=== PATIENT | female | born 1995 | race African-American/Black ===

== ENCOUNTER 2016-07-04 08:15 | Emergency (ER) | payer SELFPAY ==
[2016-07-04 08:46] VITALS: BP 132/63
[2016-07-04] MEDS ORDERED: Ketorolac INJ* 60 MG/2 ML VIAL IM ONE (10:05)
--- NOTE | 2016-07-04 10:05 | UC ---
Back Pain HPI - HPI Summary HPI Summary: fell down stairs yesterday morning-c/o coccyx pain, patient states she will be completing a chemical this afternoon - History of Current Complaint Chief Complaint: UCLowerExtremity Stated Complaint: FELL TAILBONE PAIN Time Seen by Provider: 07/04/16 09:57 Hx Obtained From: Patient Hx Last Menstrual Period: pt states in process of terminating ?: Yes Onset/Duration: Sudden Onset, Lasting Days - 1, Still Present Timing: Constant Severity Initially: Moderate Severity Currently: Moderate Pain Intensity: 7 Pain Scale Used: 0-10 Numeric Back Pain: Is Discrete @ - coccyx Character: Aching Aggravating: Movement, Bending, Walking Alleviating: Rest, Position Associated Signs And Symptoms: Negative: Abdominal Pain, Flank Pain, Bladder Incontinence, Bowel Incontinence, Weight Loss, Pain with Weight Bearing - Allergies/Home Medications Allergies/Adverse Reactions: Allergies Allergy/AdvReac Type Severity Reaction Status Date / Time No Known Allergies Allergy Verified 02/14/16 11:55 PMH/Surg Hx/FS Hx/Imm Hx Previously Healthy: Yes Endocrine History Of: Denies: Diabetes, Thyroid Disease Cardiovascular History Of: Denies: Cardiac Disorders, Hypertension, Pacemaker/ICD, Congestive Heart Failure Respiratory History Of: Denies: COPD, Asthma GI/ History Of: Denies: Gastroesophageal Reflux, Ulcer, Renal Disease Neurological History Of: Denies: CVA, Dementia, Seizures Other History Of: Negative For: Anticoagulant Therapy - Surgical History Surgical History: Yes Surgery Procedure, Year, and Place: csection 4 years ago - Family History Known Family History: Positive: None Family History: no cardio vascular issues in family lineage - Social History Occupation: Unemployed Lives: With Family Alcohol Use: Occasionally Substance Use Type: None Smoking Status (MU): Light Every Day Tobacco Smoker Type: Cigarettes Amount Used/How Often: 2-3 cig./day Have You Smoked in the Last Year: Yes - Immunization History Most Recent Influenza Vaccination: NEVER HAD Most Recent Tetanus Shot: UTD Hx Tetanus, Diphtheria Vaccination: Yes Vaccination Up to Date: Yes Review of Systems Constitutional: Negative Skin: Negative Eyes: Negative ENT: Negative Respiratory: Negative Cardiovascular: Negative Gastrointestinal: Negative Genitourinary: Negative Motor: Negative Neurovascular: Negative Musculoskeletal: Myalgia - coccyx pain Neurological: Negative Psychological: Negative All Other Systems Reviewed And Are Negative: Yes Physical Exam Triage Information Reviewed: Yes Appearance: Well-Appearing, Well-Nourished, Pain Distress Vital Signs: Initial Vital Signs Temp 97.4 F 07/04/16 08:41 Pulse 71 07/04/16 08:41 Resp 18 07/04/16 08:41 BP 132/63 07/04/16 08:41 Pulse Ox 99 07/04/16 08:41 Vital Signs Reviewed: Yes Eye Exam: Normal Eyes: Positive: Conjunctiva Clear ENT Exam: Normal ENT: Positive: Normal ENT inspection, Hearing grossly normal, TMs normal. Negative: Nasal congestion, Nasal drainage, Tonsillar swelling, Tonsillar exudate, Trismus, Muffled/hoarse voice Neck exam: Normal Neck: Positive: Supple, Nontender, No Lymphadenopathy Respiratory Exam: Normal Respiratory: Positive: Chest non-tender, Lungs clear, Normal breath sounds, No respiratory distress, No accessory muscle use Cardiovascular Exam: Normal Cardiovascular: Positive: RRR, No Murmur, Pulses Normal, Brisk Capillary Refill Abdominal Exam: Normal Abdomen Description: Positive: Nontender, No Organomegaly, Soft Bowel Sounds: Positive: Present Musculoskeletal Exam: Normal Musculoskeletal: Positive: Strength Intact, ROM Intact, No Edema, Other: - buttock pain Neurological Exam: Normal Neurological: Positive: Alert, Muscle Tone Normal Psychological Exam: Normal Skin Exam: Normal Back Pain Course/Dx - Course Course Of Treatment: patient will not have x-ray now as it will not change initial treatment-pat opts for pain control and then will return for further sx - Differential Dx/Diagnosis Differential Diagnosis/HQI/PQRI: Arthritis, Fracture, Strain, Sprain Provider Diagnoses: coccyx pain s/p fall Discharge - Discharge Plan Condition: Stable Disposition: HOME Prescriptions: HYDROcodone/ACETAMIN 5-325 MG* [[place] 5-325 TAB*] 1 tab PO Q6H PRN #15 tab MDD 4 PRN Reason: Pain Patient Education Materials: Hydrocodone/Acetaminophen (By mouth), Ibuprofen ( By mouth), Coccyx Injury (ED), Ice Pack Application (ED) [place]: [facility] [place] [facility] [place]] - 3 Days No Primary Care Phys,NOPCP [Primary Care Provider] -
== END 2016-07-04 10:42 | disposition home or self-care (01) ==
LOC: UCEAST 08:15
DX: M53.3 Sacrococcygeal disorders, not elsewhere classified (principal); W10.9XXA Fall (on) (from) unspecified stairs and steps, initial encounter; Y93.9 Activity, unspecified; Y92.9 Unspecified place or not applicable; Y99.9 Unspecified external cause status; Z33.1 Pregnant state, incidental; F17.210 Nicotine dependence, cigarettes, uncomplicated
CPT/HCPCS: 99212; G0463; J1885

== ENCOUNTER 2017-06-28 21:33 | Emergency (ER) | payer SELFPAY ==
[2017-06-28 21:44] VITALS: BP 112/58
--- NOTE | 2017-06-28 21:44 | UC ---
Abdominal Pain Female HPI - HPI Summary HPI Summary: 21 year old female presents with complains of severe abdominal pain after taking plan B. - History of Current Complaint Stated Complaint: ABDOMINAL PAIN Time Seen by Provider: 06/28/17 21:42 Hx Obtained From: Patient Hx Last Menstrual Period: pt states in process of terminating Onset/Duration: Sudden Onset Severity Initially: Severe Severity Currently: Severe Location: Suprapubic Allergies/Adverse Reactions: Allergies Allergy/AdvReac Type Severity Reaction Status Date / Time No Known Allergies Allergy Verified 06/28/17 21:44 Home Medications: Home Medications NK [No Home Medications Reported] 06/28/17 [History Confirmed 06/28/17] PMH/Surg Hx/FS Hx/Imm Hx Previously Healthy: Yes Other History Of: Negative For: Anticoagulant Therapy - Surgical History Surgical History: Yes Surgery Procedure, Year, and Place: csection 4 years ago - Family History Known Family History: Positive: None Family History: no cardio vascular issues in family lineage - Social History Alcohol Use: Occasionally Substance Use Type: None Smoking Status (MU): Light Every Day Tobacco Smoker Type: Cigarettes Amount Used/How Often: 2-3 cig./day Have You Smoked in the Last Year: Yes - Immunization History Most Recent Influenza Vaccination: NEVER HAD Most Recent Tetanus Shot: UTD Hx Tetanus, Diphtheria Vaccination: Yes Vaccination Up to Date: Yes Review of Systems Constitutional: Negative Skin: Negative Eyes: Negative ENT: Negative Respiratory: Negative Cardiovascular: Negative Gastrointestinal: Abdominal Pain Genitourinary: Negative Motor: Negative Neurovascular: Negative Musculoskeletal: Negative Neurological: Negative Psychological: Negative All Other Systems Reviewed And Are Negative: Yes Physical Exam Triage Information Reviewed: Yes Vital Signs: Initial Vital Signs Temp 37.1 C 06/28/17 21:38 Pulse 89 06/28/17 21:38 Resp 16 06/28/17 21:38 BP 112/58 06/28/17 21:38 Pulse Ox 99 06/28/17 21:38 Vital Signs Reviewed: Yes Eye Exam: Normal ENT Exam: Normal Dental Exam: Normal Neck exam: Normal Neck: Positive: 1 Respiratory Exam: Normal Cardiovascular Exam: Normal Abdomen Description: Positive: Other: - SEVERE SUPRPUBIC PAIN Musculoskeletal Exam: Normal Neurological Exam: Normal Psychological Exam: Normal Skin Exam: Normal Abd Pain Female Course/Dx - Differential Dx/Diagnosis Provider Diagnoses: SEVERE SUPRAPUBIC PAIN Discharge - Discharge Plan Condition: Stable Disposition: OTHER Discharge Disposition Comment: PATIENT SUGGESTED TO GO TO THE ER Patient Education Materials: Acute Abdominal Pain (ED) Referrals: No Primary Care Phys,NOPCP [Primary Care Provider] - Additional Instructions: patient suggested to go to the er for severe rlq pain
== END 2017-06-28 22:07 ==
LOC: UCEAST 21:33
DX: R10.30 Lower abdominal pain, unspecified (principal); F17.210 Nicotine dependence, cigarettes, uncomplicated
CPT/HCPCS: 99212; G0463

== ENCOUNTER 2017-06-28 22:26 | Emergency (ER) | payer SELFPAY ==
[2017-06-28 23:43] VITALS: BP 0/0
== END 2017-06-28 23:43 | disposition left against medical advice (07) ==
LOC: ED 22:26
DX: R10.9 Unspecified abdominal pain (principal); Z53.21 Procedure and treatment not carried out due to patient leaving prior to being seen by health care provider

== ENCOUNTER 2017-12-24 20:17 | Emergency (ER) | payer SELFPAY ==
[2017-12-24] MEDS ORDERED: Metoclopramide IV* 5 MG/ML 2 ML VIAL IV ONE (20:57)
[2017-12-24] MEDS ORDERED: NS 0.9% 1000 ML* 1,000 ML IV ONE (20:57)
[2017-12-24] MEDS ORDERED: diPHENhydraMINE IV* 50 MG/ML 1 ml VIAL (BENADRYL) IV ONE (20:57)
[2017-12-24 21:21] LABS: ABS Basophils 0 10^3/ul (0-0.2); ABS Eosinophils 0.1 10^3/ul (0-0.6); ABS Lymphocytes 2.2 10^3/ul (1.0-4.8); ABS Monocytes 0.5 10^3/ul (0-0.8); ABS Neutrophils 5.7 10^3/ul (1.5-7.7); ABS Nucleated RBC 0 10^3/ul; Eosinophil % 1.1 % (0-6); Hematocrit 34 % (35-47); Hemoglobin 11.8 g/dl (12.0-16.0); Lymphocyte % 25.5 % (25-47); Mean Corpuscular HGB Conc 35 g/dl (31-36); Mean Corpuscular Hemoglobin 31 pg (27-31); Mean Corpuscular Volume 90 fL (80-97); Mean Platelet Volume 7.9 um3 (7.4-10.4); Nucleated Red Blood Cells % 0; Platelet Count 219 10^3/ul (150-450); Red Blood Count 3.77 10^6/ul (4.00-5.40); Red Cell Distribution Width 13 % (10.5-15); White Blood Count 8.5 10^3/ul (3.5-10.8)
[2017-12-24 21:35] LABS: EGFR Non-African American 119.3 (>60)
[2017-12-24] MEDS ORDERED: Ondansetron ODT TAB* 4 MG PO ONE (21:46)
[2017-12-24 22:10] VITALS: BP 118/77
--- NOTE | 2017-12-25 06:51 | ED ---
Ying Pinto Jade, scribed for Terry Meyer MD on 12/24/17 at 2148 . - HPI Summary HPI Summary: Pt is a 22 y/o female who presents to the ED c/o N/V/D for 3 weeks. She is currently 12 weeks , and has lost 10 lbs since becoming . The nausea is intermittent but comes in waves all the day. Pt states she goes days without eating due to loss of appetite, and has been smoking marijuana to increase her appetite. She states she has not felt the baby move yet. Pt denies any vaginal bleeding or pain. She has not seen an CIRCLE SAW OPERATOR yet and cant get in until January, but had an US that revealed the embryo in the uterus. Pt denies any similar PMHx in her prior pregnancies. LNMP 10/03/17. /A3. - History of Current Complaint Chief Complaint: EDNauseaVomitDiarrh Stated Complaint: VOMITTING Time Seen by Provider: 12/24/17 21:33 Hx Obtained From: Patient Chief Complaint: Other: - N/V/D and weight loss Onset/Duration: Started Weeks Ago - 3, Still Present Timing: Intermittent Current Severity: None Pain Intensity: 0 Location of Pain: None Aggravating Factors: Nothing Alleviating Factors: Nothing Associated Signs and Symptoms: Positive: Appetite - Decreased, Nausea, Vomiting , Other: - Diarrhea. Negative: Vaginal Bleeding or Discharge - Assessment Hx Now: Yes Hx Hysterectomy: No - Allergies/Home Medications Allergies/Adverse Reactions: Allergies Allergy/AdvReac Type Severity Reaction Status Date / Time No Known Allergies Allergy Verified 12/24/17 20:25 PMH/Surg Hx/FS Hx/Imm Hx Endocrine/Hematology History: Denies: Hx Anticoagulant Therapy, Hx Diabetes, Hx Thyroid Disease Cardiovascular History: Denies: Hx Congestive Heart Failure, Hx Hypertension, Hx Pacemaker/ICD Respiratory History: Denies: Hx Asthma, Hx Chronic Obstructive Pulmonary Disease (COPD) GI History: Denies: Hx Ulcer History: Denies: Hx Renal Disease Neurological History: Denies: Hx Dementia, Hx Seizures Psychiatric History: Reports: Hx Depression, Hx of Violent Episodes Against Others Denies: Hx Substance Abuse - Surgical History Surgery Procedure, Year, and Place: csection 4 years ago Infectious Disease History: No Infectious Disease History: Denies: Hx Clostridium Difficile, Hx Hepatitis, Hx Human Immunodeficiency Virus (HIV), Hx of Known/Suspected MRSA, Hx Shingles, Hx Tuberculosis, Hx Known/ Suspected VRE, Hx Known/Suspected VRSA, History Other Infectious Disease, Traveled Outside the [place] in Last 30 Days - Family History Known Family History: Positive: Other - Pre-eclampsia Family History: no cardio vascular issues in family lineage - Social History Alcohol Use: Weekly Substance Use Type: Reports: Marijuana Smoking Status (MU): Former Smoker Type: Cigarettes Amount Used/How Often: 2-3 cig./day Have You Smoked in the Last Year: Yes Review of Systems Positive: Vomiting, Diarrhea, Nausea Positive: other - NEGATIVE: vaginal bleeding. Negative: pain All Other Systems Reviewed And Are Negative: Yes Physical Exam - Summary Physical Exam Summary: Appearance: Well appearing, no pain distress Skin: warm, dry, reflects adequate perfusion Head/face: normal Eyes: EOMI, [place] ENT: normal Neck: supple, non-tender Respiratory: CTA, breath sounds present Cardiovascular: RRR, pulses symmetrical Abdomen: non-tender, soft Bowel Sounds: present Musculoskeletal: normal, strength/ROM intact Neuro: normal, sensory motor intact, A&Ox3 - Physical Exam Triage Information Reviewed: Yes Vital Signs Reviewed: Yes Diagnostics - Vital Signs Vital Signs Temp Pulse Resp BP Pulse Ox 12/24/17 20:21 98.6 F 65 16 122/63 99 - Laboratory Lab Results: Lab Results 12/24/17 12/24/17 Range/Units 21:13 21:13 WBC 8.5 (3.5-10.8) 10^3/ul RBC 3.77 L (4.00-5.40) 10^6/ul Hgb 11.8 L (12.0-16.0) g/dl Hct 34 L (35-47) % MCV 90 (80-97) fL MCH 31 (27-31) pg MCHC 35 (31-36) g/dl RDW 13 (10.5-15) % Plt Count 219 (150-450) 10^3/ul MPV 7.9 (7.4-10.4) um3 Neut % (Auto) 67.3 (38-83) % Lymph % (Auto) 25.5 (25-47) % [place] % (Auto) 5.7 (0-7) % Eos % (Auto) 1.1 (0-6) % Baso % (Auto) 0.4 (0-2) % Absolute Neuts (auto) 5.7 (1.5-7.7) 10^3/ul Absolute Lymphs (auto) 2.2 (1.0-4.8) 10^3/ul Absolute Monos (auto) 0.5 (0-0.8) 10^3/ul Absolute Eos (auto) 0.1 (0-0.6) 10^3/ul Absolute Basos (auto) 0 (0-0.2) 10^3/ul Absolute Nucleated RBC 0 10^3/ul Nucleated RBC % 0 Sodium 134 L (135-145) mmol/L Potassium 3.8 (3.5-5.0) mmol/L Chloride 101 (101-111) mmol/L Carbon Dioxide 24 (22-32) mmol/L Anion Gap 9 (2-11) mmol/L BUN 11 (6-24) mg/dL Creatinine 0.62 (0.51-0.95) mg/dL Est GFR ( Amer) 144.3 (>60) Est GFR (Non-Af Amer) 119.3 (>60) BUN/Creatinine Ratio 17.7 (8-20) Glucose 73 (70-100) mg/dL Calcium 9.3 (8.6-10.3) mg/dL Result Diagrams: 12/24/17 21:13 12/24/17 21:13 Lab Statement: Any lab studies that have been ordered have been reviewed, and results considered in the medical decision making process. - Ultrasound No standard instances Ultrasound Interpretation: Positive (See Comments) - 21:55 In-room US - heart tone 140 bpm, intrauterine. Ultrasound Interpretation Completed By: ED Physician Course/Dx - Course Course Of Treatment: Patient with chronic nausea throughout her . She has not had care up to this point. She is taking a vitamin. I suggested that she take Unisom and B complex vitamins before bed. Additionally she was given Zofran ODT here after laboratories showed no dehydration, etc. She will use outpatient Zofran ODT sparingly if she cannot keep any liquids pills down. She will use promethazine primarily as needed. Assessment/Plan: I evaluated the which is intrauterine with a heart tone of approximately 140. - Differential Diagnosis/HQI/PQRI: Other: - Upper emesis gravidarum, vomiting during - Diagnoses Provider Diagnoses: Vomiting during Discharge - Sign-Out/Discharge Documenting (check all that apply): Discharge/Admit/Transfer - Discharge - Discharge Plan Condition: Stable Disposition: HOME Prescriptions: Ondansetron [Zofran Odt] 4 mg PO TID PRN #10 tab.rapdis PRN Reason: Nausea Promethazine TAB* [Phenergan Tab*] 25 mg PO Q8H PRN #30 tab PRN Reason: Nausea Patient Education Materials: Nausea and Vomiting in (ED) Referrals: Jason Miller MD [Medical Doctor] - No Primary Care Phys,NOPCP [Primary Care Provider] - Additional Instructions: [place] diet, drink plenty of fluids. Gatorade G2 or propel water may help. Take Unisom and B complex vitamin 2 hours before bed for as long as related nausea occurs. Call your CIRCLE SAW OPERATOR in the morning to schedule prompt follow-up. - Billing Disposition and Condition Condition: STABLE Disposition: Home The documentation as recorded by the Ying roa Jade accurately reflects the service I personally performed and the decisions made by me, Terry Meyer MD.
== END 2017-12-24 22:10 | disposition home or self-care (01) ==
LOC: ED 20:17
DX: O21.0 Mild hyperemesis gravidarum (principal); Z3A.12 12 weeks gestation of pregnancy; Z87.891 Personal history of nicotine dependence
CPT/HCPCS: 36415; 80048; 85025; 99282; A9270-GY